=== PATIENT | female | born 1945 | race Caucasian/White ===

== ENCOUNTER 2018-11-21 18:45 | Inpatient (IN) ==
[2018-11-21] MEDS ORDERED: MORPHINE IV ONE ×2 (19:58→20:52)
--- NOTE | 2018-11-21 20:30 | Diag Imaging Result Doc PS360 ---
EXAM: CT HEAD W/O CONTRAST - 11/21/2018 HISTORY: fall TECHNIQUE: CT head without contrast COMPARISON: None. FINDINGS: There are chronic appearing microvascular ischemic changes. There is no indication of recent infarct, although acute infarcts may not be immediately visible. There is no evidence of intracranial hemorrhage, mass effect, or midline shift. There is no evidence of skull fracture. IMPRESSION: No visible acute intracranial abnormality. No hemorrhage or mass effect. This exam was performed using automated exposure control, adjustment of mA or kV according to patient size, and/or use of iterative reconstruction technique. Electronically signed by Nnamdi Dang 11/21/2018 8:28 PM
--- NOTE | 2018-11-21 20:31 | Diag Imaging Result Doc PS360 ---
EXAM: XRAY PELVIS W/HIP 2-3VW LT - 11/21/2018 HISTORY: fall TECHNIQUE: Left hip and pelvis three views COMPARISON: None. FINDINGS: There is fracture through the left femoral neck, with varus deformity. There is no other fracture or dislocation identified. IMPRESSION: Fracture through left femoral neck, with varus deformity. Electronically signed by Nnamdi Dang 11/21/2018 8:29 PM
--- NOTE | 2018-11-21 20:32 | Diag Imaging Result Doc PS360 ---
EXAM: CHEST-1 VIEW - 11/21/2018 HISTORY: hip fracture TECHNIQUE: AP spine chest COMPARISON: None. FINDINGS: Heart size is normal. The lungs appear clear. There is no pleural effusion or pneumothorax identified. IMPRESSION: No evidence of acute disease. Electronically signed by Nnamdi Dang 11/21/2018 8:30 PM
[2018-11-21] MEDS ORDERED: ATIVAN IV ONE (20:42)
[2018-11-21 21:11] LABS: BASO# 0.03 X1000 (0.0-0.2); BASO% 0.2 % (0.0-0.8); EOS# 0.14 X1000 (0.0-0.7); EOS% 0.7 % (0.0-10.0); HEMATOCRIT 38.3 % (37.0-47.0); HEMOGLOBIN 12.3 g/dL (12.0-16.0); IMM GRAN% 1.1 % (0.0-0.5); LYMPH# 1.52 X1000 (1.2-3.4); LYMPH% 8.1 % (20.5-51.1); MCH 29.4 PG (27-31); MCHC 32.1 g/dL (33-37); MCV 91.6 FL (81-99); MONO# 1.17 X1000 (0.11-0.59); MONO% 6.2 % (1.7-9.3); MPV 9.8 FL (7.4-10.4); NEUT# 15.76 X1000 (1.4-6.5); NEUT% 83.7 % (42.2-75.2); PLT 270 X1000 (130-400); RBC 4.18 XMIL (4.2-5.4); RDW 16.1 % (11.5-14.5); WBC 18.82 X1000 (4.8-10.8)
[2018-11-21 21:14] LABS: INR 0.91; PROTIME 12.9 Seconds (11.0-16.0)
[2018-11-21 21:34] LABS: AGAP 12; BUN 19 mg/dL (8-22); CALCIUM 8.7 mg/dL (8.8-10.2); CHLORIDE 104 mmol/L (98-107); COSMO 291; CREATININE 0.8 mg/dL (0.5-0.9); ESTIMATED GFR > 60; GLUCOSE 107 mg/dL (70-104); POTASSIUM 4.3 mmol/L (3.5-5.1); SODIUM 145 mmol/L (136-145); TCO2 29 mmol/L (25-35)
--- NOTE | 2018-11-21 21:54 | PROVIDER DOCUMENTATION ---
This chart was entered by Bharathi Brizuela Scribe, acting as scribe for Jaimee Lawler MD. HPI-Musculoskeletal Pain/Inj - GENERAL Chief Complaint: Fall Stated Complaint: fall/hip pain Time Seen by Provider: 11/21/18 19:56 Source: patient, family - HX OF PRESENT ILLNESS-MUSKULOSKELTAL Nature of Presenting Problem: Pt is a 73 y/o F c/o of left hip pain after a mechanical fall in her car port. Pt says she tripped down 2 steps. The states he found on all fours on the car port concrete floor. Pt denies hitting her head but does not recall and this fall was unwitnessed. She takes plavix and aspirin. She is on Hospice care for advanced COPD. States she was not able to get up from the floor due to her hip pain. no numbness or tingling Quality of Pain: reports: aching Severity in ED: severe Onset/Duration: just prior to arrival Timing: still present Modifying Factors: improves with: nothing Any recent injury?: No Locality of Occurance: Home Similar Symptoms Previously?: No Recently seen or treated by another doctor?: No - FALL INJURY Location of Pain/Injury: reports: other (left hip) Pain Radiation: reports: no radiation Reason for Fall: reports: tripped Symptoms prior to fall:: reports: none Loss of Consciousness: no loss of consciousness Injury Associated Symptoms: denies: diaphoresis, dizziness, shortness of breath , trouble walking Review of Systems - Adult - REVIEW OF SYSTEMS - ADULT Constitutional: denies: chills, fever Eyes: reports: no symptoms reported Ears, Nose, Mouth & Throat: reports: no symptoms reported Cardiovascular: denies: chest pain, edema Respiratory: denies: cough, shortness of breath Gastrointestinal: denies: abdominal pain, nausea, vomiting Genitourinary: reports: no symptoms reported Musculoskeletal: reports: other (left hip pain). denies: back pain, neck pain Integumentary: reports: no symptoms reported Neurological: denies: dizziness/vertigo, headache/migraines Psychiatric: reports: no symptoms reported Endocrine: reports: no symptoms reported Hematologic/Lymphatic: reports: no symptoms reported Allergic/Immunologic: reports: no symptoms reported All Other Systems: Reviewed and Negative Past History - Adult - PAST MEDICAL HISTORY-ADULT Review of Records: reports: Old Records Reviewed, Nursing Assessment Review, Medications Reviewed, Social history reviewed & non-contributory. - SOCIAL HISTORY Smoking: cigarettes Living Situation: family Physical Exam-Injury Related - Physical Exam-Injury Related Initial Vital Signs Reviewed: Yes General Appearance: appears well, alert Eyes: PERRL/EOMI, pink conjunctivae Head, Ears, Nose, Mouth & Throat: normocephalic/atraumatic, moist mucous membranes, normal ENT inspection Neck: non-tender, full range of motion, supple, normal inspection Respiratory: chest non-tender, lungs clear, normal breath sounds, no respiratory distress Cardiovascular: normal peripheral pulses, regular rate, rhythm Abdominal Exam: normal bowel sounds, non tender, soft Back Exam: normal inspection, no CVA tenderness, no vertebral tenderness Extremity: normal capillary refill, pelvis stable, deformity (left hip), tenderness, other (neurovascularly intact). negative: normal range of motion ( unable to straighten left leg) Integumentary: normal color, warm/dry Neurologic: grossly normal, no motor/sensory deficits Psych/Mental Status: normal mood/affect, normal thought content, normal thought process, oriented x 3 Progress - PLAN OF CARE/RESULTS Progress/Plan/Lab Results: Vital Signs - 8 hr 11/21/18 19:01 11/21/18 19:12 Temperature 98 F 98.2 F Pulse Rate 83 83 Respiratory Rate 20 20 Blood Pressure 137/87 115/72 O2 Sat by Pulse Oximetry 95 97 Laboratory Results - last 24 hr 11/21/18 11/21/18 11/21/18 19:39 19:39 19:39 WBC 18.82 H RBC 4.18 L Hgb 12.3 Hct 38.3 MCV 91.6 MCH 29.4 MCHC 32.1 L RDW Std Deviation 16.1 H Plt Count 270 MPV 9.8 Immature Gran % (Auto) 1.1 H Neut % (Auto) 83.7 H Lymph % (Auto) 8.1 L Seward % (Auto) 6.2 Eos % (Auto) 0.7 Baso % (Auto) 0.2 Immature Gran # (Auto) 0.20 H Neut # (Auto) 15.76 H Lymph # (Auto) 1.52 Seward # (Auto) 1.17 H Eos # (Auto) 0.14 Baso # (Auto) 0.03 PT 12.9 INR 0.91 Sodium 145 Potassium 4.3 Chloride 104 Carbon Dioxide 29 Anion Gap 12 BUN 19 Creatinine 0.8 Estimated GFR/1.73 m2 > 60 BUN/Creatinine Ratio 24 Glucose 107 H Calculated Osmolality 291 Calcium 8.7 L Orders Category Date Time Status IV Insertion ORDERED Care 11/21/18 19:58 Completed CHEST-1 VIEW [RAD] Stat Exams 11/21/18 20:[address] HEAD W/O CONTRAST [CT] Stat Exams 11/21/18 19:58 Completed XRAY PELVIS W/HIP 2-3VW LT [RAD] Stat Exams 11/21/18 19:58 Completed BASIC METABOLIC PANEL [CHEM] Stat Lab 11/21/18 19:39 Completed CBC WITH ELECTRONIC DIFF [HEME] Stat Lab 11/21/18 19:39 Completed PROTIME WITH INR [COAG] Stat Lab 11/21/18 19:39 Completed Lorazepam [Ativan] Med 11/21/18 20:42 Discontinued 1 mg IV NOW ONE Morphine Med 11/21/18 19:58 Discontinued 4 mg IV NOW ONE Morphine Med 11/21/18 20:52 Discontinued 4 mg IV NOW ONE EKG [EKG] Stat Ther 11/21/18 20:53 Ordered fall with hip pain and possible impaction of head will further evaluate for underlying injuries. Result Diagrams: 11/21/18 19:39 11/21/18 19:39 - REASSESSMENT Reassessment #1 Status: improving (pain improved, left femoral neck fracture. Discussed case with ortho who would like pt admitted to hospitalist for pre-op clearance. Discussed case with Dr. Silvestre, hospitalist, who will see and admit pt.) - EKG 1 Time of EKG reading by physician:: 21:09 EKG Read and Signed by:: Jaimee Lawler EKG Interpretation (*Must complete 3 of following elements*): Normal Rate: 87 Rhythm: NSR Holloway: normal QRS: normal [place] Interval: normal ST Wave: normal - XRAY 1 XRAY: Left XRAY Study: Hip Impression: Abnormal (EXAM: XRAY PELVIS W/HIP 2-3VW LT - 11/21/2018 HISTORY: fall TECHNIQUE: Left hip and pelvis three views COMPARISON: None. FINDINGS : There is fracture through the left femoral neck, with varus deformity. There is no other fracture or dislocation identified. IMPRESSION: Fracture through left femoral neck, with varus deformity. Electronically signed by Whittl 11/21/2018 8:29 PM 11/[id number]/[id number]), See EMR Report 2 XRAY Study: Chest Impression: Normal (HISTORY: hip fracture TECHNIQUE: AP spine chest COMPARISON: None. FINDINGS: Heart size is normal. The lungs appear clear. There is no pleural effusion or pneumothorax identified. IMPRESSION: No evidence of acute disease. Electronically signed by Whittl 2018 8:30 PM 11/21/[id number]), See EMR Report - CT/MRI 1 CT Study: Head Impression: Normal (EXAM: CT HEAD W/O CONTRAST - 11/21/2018 HISTORY: fall TECHNIQUE: CT head without contrast COMPARISON: None. FINDINGS: There are chronic appearing microvascular ischemic changes. There is no indication of recent infarct, although acute infarcts may not be immediately visible. There is no evidence of intracranial hemorrhage, mass effect, or midline shift. There is no evidence of skull fracture. IMPRESSION: No visible acute intracranial abnormality. No hemorrhage or mass effect. This exam was performed using automated exposure control, adjustment of mA or kV according to patient size, and/or use of iterative reconstruction technique. Electronically signed by Whittl 11/21/2018 8:28 PM), See EMR Report - CONSULTS/PCP/HOSPITALIST Notification #1 *Consult/PCP/Hospitalist*: Dr Silvestre- Hospitalist Time Discussed: 21:28 Reason/Comments: admission Consult Disposition: Admit (accepts) #2 Consult: Dr Borjas Time Discussed: 21:02 Reason/Comments: consult for surgery Consult Disposition: other (will follow) Departure - Departure Date of Disposition Decision: 11/21/18 Time of Disposition Decision: 21:28 DIAGNOSIS: Closed left hip fracture Disposition: ADMITTED INPATIENT 09 Certified Medical Emergency: Emergent Condition: Stable Referrals and Follow-Ups: Kashif Rosenthal MD [Primary Care Provider] - - Critical Care Note This patient required my direct & personal management of CC.: No Attestation - Physician/ CAROLE Attestation Patient care was provided by Advanced Practice Provider:: No The physician spent face to face time with patient:: Yes Advanced Practice Provider documentation review:: Supervising physician onsite and consulted in the evaluation and care of this patient. The physician did have a face to face encounter with the patient. This chart was documented by the indicated scribe, (Bharathi Brizulea Scribe) and accurately reflects the services I performed and decisions made by me, Jaimee Lawler MD, as attested by the provider's signature.
[2018-11-21 23:53] LABS: URINE SOURCE CATH
[2018-11-21 23:56] LABS: BILIRUBIN URINE NEGATIVE (NEGATIVE); BLOOD URINE NEGATIVE (NEGATIVE); COLOR YELLOW; GLUCOSE URINE NEGATIVE (NEGATIVE); KETONE URINE TRACE mg/dL (NEGATIVE); LEUKOCYTES URINE TRACE (NEGATIVE); NITRITE URINE NEGATIVE (NEGATIVE); PH URINE 5.5; PROTEIN URINE 50 mg/dL (NEGATIVE); SP GRAVITY URINE 1.031; TURBIDITY URINE CLEAR (CLEAR); UR EPITHELIAL CELLS <10 /HPF (<10); URINE BACTERIA NEGATIVE /HPF; URINE RBC <10 /HPF (<10); URINE WBC <10 /HPF (<10); UROBILINOGEN URINE 3 mg/dL (NORMAL)
--- NOTE | 2018-11-22 02:10 | HISTORY AND PHYSICAL ---
ADDENDUM HISTORY OF PRESENT ILLNESS: Ms. Earnestine Patel apparently fell in her carport. Her had gone to receive some milk from a neighbor across the stress and when he turned back on his way home a few feet away his was on all 4's and complained to him that she felt she had broken her left hip and was in pain. He did not see what had happened, but he believes that his may have fallen and landed on the left side of her hip. The patient is not a good historian because she has underlying vascular dementia, and also she is currently sedated from benzodiazepines and IV opiates because she was in a lot pain. Her denied any head injury or confusion following this episode. She is a COPD patient on home O2. She is also on hospice. DATA: Her white counts are reviewed which showed a white count of 18,000 which I suspect is reactive. Hemoglobin is 12, hematocrit 38, platelets 270,000 with 83% neutrophils. Urinalysis was not drawn. Glucose was 107, BUN 19, creatinine 0.8. Head CT did not show any acute intracranial bleed. EKG did show sinus tachycardia. Chest film: No evidence of acute disease. Hip and pelvis x-rays showed fracture of the left femoral neck with varus deformity. PHYSICAL EXAMINATION: VITAL SIGNS: Blood pressure 115/72, heart rate 83, respirations 20, temperature is 98.2. She is heavily sedated on 3 L with 97% O2. GENERAL: Noted for a sedated elderly woman resting comfortably, not cyanotic, mildly pale. CHEST: Decreased air entry in both lung del toro with a few expiratory wheezes. EXTREMITIES: Good pulses distally in all extremities. Her left lower extremity showed flexion of her left knee and external rotation of her hip which the patient's spouse said was the most comfortable position for her. ASSESSMENT AND PLAN: Left hip fracture and will probably undergo surgery in 2 days, i.e. Wednesday. The reason for this is because the patient is on high dose aspirin and Plavix. The patient was put on this because of prior recurrent cerebrovascular accidents, which, surprisingly, her does not know anything about. Dr. Reynoso, orthopedist labor relations or personnel negotiator, was notified. Will hold antiplatelet medications for the next 2 nights and hopefully the patient can undergo surgery on Wednesday. This will be done to decrease postoperative bleeding. The patient might also need p.r.n. short-acting bronchodilation, nebulizations and/or long-acting bronchodilators, i.e. Brovana, b.i.d. and arterial blood gases might be useful if the patient is drowsy prior to surgery to be sure she is not a CO2-retainer. cc: Vida Silvetsre MD
[2018-11-22] MEDS ORDERED: TYLENOL PO PRN (03:15)
[2018-11-22] MEDS ORDERED: ZOFRAN IV PRN (03:15)
[2018-11-22] MEDS: DUONEB (A & A) INH SCH ×4 (04:00→23:50)
[2018-11-22 06:41] LABS: BASO# 0.03 X1000 (0.0-0.2); BASO% 0.2 % (0.0-0.8); EOS# 0.21 X1000 (0.0-0.7); EOS% 1.5 % (0.0-10.0); HEMATOCRIT 36.9 % (37.0-47.0); HEMOGLOBIN 11.4 g/dL (12.0-16.0); IMM GRAN% 0.7 % (0.0-0.5); LYMPH# 1.15 X1000 (1.2-3.4); LYMPH% 8.2 % (20.5-51.1); MCH 28.7 PG (27-31); MCHC 30.9 g/dL (33-37); MCV 92.9 FL (81-99); MONO# 1.17 X1000 (0.11-0.59); MONO% 8.4 % (1.7-9.3); MPV 9.8 FL (7.4-10.4); NEUT# 11.28 X1000 (1.4-6.5); PLT 249 X1000 (130-400); RBC 3.97 XMIL (4.2-5.4); RDW 16.2 % (11.5-14.5); WBC 13.94 X1000 (4.8-10.8)
[2018-11-22 06:52] LABS: AGAP 8; ALB/GLOB RATIO 1.5; ALBUMIN 3.8 g/dL (3.5-5.0); ALKALINE PHOSPHATASE 59 U/L (32-104); BUN 20 mg/dL (8-22); CHLORIDE 103 mmol/L (98-107); COSMO 288; CREATININE 0.8 mg/dL (0.5-0.9); ESTIMATED GFR > 60; GLUCOSE 143 mg/dL (70-104); GOT 119 U/L (10-30); GPT 107 U/L (10-36); POTASSIUM 4.4 mmol/L (3.5-5.1); SODIUM 142 mmol/L (136-145); TCO2 31 mmol/L (25-35); TOTAL BILIRUBIN 0.67 mg/dL (0.20-1.00); TOTAL PROTEIN 6.4 g/dL (6.3-8.3)
--- NOTE | 2018-11-22 07:24 | EKG Report ---
Test Performed on : 11/21/2018 9:09:12 PM Test Reason : pre op Blood Pressure : / mmHG Vent. Rate : 087 BPM Atrial Rate : 087 BPM P-R Int : 152 ms QRS Dur : 074 ms QT Int : 372 ms P-R-T Axes : 076 021 056 degrees QTc Int : 447 ms Poor data quality, interpretation may be adversely affected Normal sinus rhythm. Normal ECG No previous ECGs available Unconfirmed Result
--- NOTE | 2018-11-22 07:39 | HISTORY AND PHYSICAL ---
PRIMARY CARE PROVIDER: Dr. Kashif Rosenthal. CHIEF COMPLAINT: Fall with left hip pain. HISTORY OF PRESENT ILLNESS: Mrs. Patel is a 73-year-old, female, with past medical history most notable for hypertension, CVA, vascular dementia and end-stage COPD for which she is on hospice. The patient's states that this afternoon just prior to arrival that he was outside and that his was in the carport. He states that he had just arrived home and from he understands she was outside probably letting the dogs out. She states that she was standing upright. He turned around and when he turned back around she had fallen and was down on all fours. When he did go to help her, she did tell him that she thought her hip was broken though he did not witness the fall. According to the ER note, the patient was alert and oriented x3. Upon arrival she was complaining of left hip pain. She reported that she tripped down two steps. The patient denied hitting her head but could not confirm this for sure. She does take Plavix and aspirin. They did perform a CT of the head, which showed no visible acute intracranial abnormalities. There was no hemorrhage or mass affect. Chest x-ray showed no evidence of acute disease. X-ray of pelvis with a left hip view did show that she had a fracture through the left femoral neck with varus deformity. Her white blood cell count was elevated at 18,820. She did have trace leukocytes noted in her urinalysis that was obtained, but there was no report of dysuria. Unfortunately, at this time due to the patient was in quite a bit of pain and was reported to be very restless they did give her a total of 8 mg of morphine and 1 mg of Ativan in the ER prior to our examination. The patient at this time is sleeping. She was only arousable to painful stimuli. We were unable to obtain a review of systems at this time. Though she does have adequate vital signs, she does have good chest rise and fall. Last vital signs are heart rate 89, respirations 20, blood pressure 126/78, and oxygen saturation is 93% nasal cannula at 3 L. At this time, the patient will be admitted inpatient for further treatment and evaluation of her left femoral neck fracture. Dr. Alicia who is on-call for Orthoped[facility] has been made aware of the patient. Also we would like to add that the patient's spouse states that she is on hospice for end-stage COPD. That she does not require continuous oxygen, though does use it p.r.n. and usually this is at a rate of 3.5 L. He reports that she is able to ambulate, though does have to hold onto things. She alternates assisted devices of a cane, wheelchair and walker at times. He states that she can only ambulate short distances before becoming short of breath and having to rest. He reports that she does have a history of vascular dementia as well as CVA. He reports that it is not uncommon for her to have forgetfulness, especially related to short-term memory. REVIEW OF SYSTEMS: At this time unable to be performed due to the patient's current inpatient condition. PAST MEDICAL HISTORY: 1. History of CVA. The patient did have an MRI that was performed in 2014 which did show that she had extensive chronic microvascular disease and numerous old lacunar infarcts. The patient's states that around this time is approximately the time that she was placed on a medication regimen of aspirin and Plavix by Dr. Rosenthal. 2. Vascular dementia. 3. End-stage COPD on nasal cannula at 3.5 L p.r.n. at home as well as hospice. PAST SURGICAL HISTORY: 1. Cholecystectomy. 2. Hysterectomy. SOCIAL HISTORY: The patient does live with her who was present at bedside. She is a smoker and has smoked since she was in her 20s. He states that she previously did smoke two packs per day, though is down to about 2/3 of a pack at this time. There is no known alcohol or illicit drug use. He does report that she does require assistance with ambulation and does alternate between a cane, walker and wheelchair at times. As previously mentioned, the patient is on hospice for end-stage COPD at this time. FAMILY HISTORY: Positive for her mother having a history of dementia and lung cancer. Her father also had a history of lung cancer. ALLERGIES: Sulfa. HOME MEDICATIONS: 1. Aspirin 325 mg p.o. daily. 2. Clonazepam 0.5 mg to 1.0 mg p.o. q at bedtime. 3. Plavix 75 mg p.o. daily. 4. Sennoside/docusate sodium stool softener 100 mg p.o. b.i.d. 5. The patient's also states that she has been using a lorazepam liquid as well. DIAGNOSTIC DATA/LABORATORY RESULTS: 1. White blood cell count is 18,820, hemoglobin 12.3, hematocrit 38.3, platelet count 270,000. PT 12.9. INR 0.91. 2. Sodium 145, potassium 4.3, chloride 104, serum bicarb is 29, BUN 19, creatinine 0.8, glucose 107, calcium 8.7. 3. Urinalysis was obtained via catheter and was positive for protein, trace ketones and trace leukocytes otherwise negative. 4. Chest x-ray showed no acute abnormalities. 5. CT of the head showed no visible acute intracranial abnormality. No hemorrhage or mass affect. 6. X-ray of the pelvis with left hip view showed fracture through the left femoral neck with varus deformity. PHYSICAL EXAMINATION: VITAL SIGNS: Temperature 97.8 degrees Fahrenheit, heart rate 89, respirations 19, blood pressure 126/78. Oxygen saturation is 92% on nasal cannula at 3L. GENERAL: Mrs. Patel is an elderly, 73-year-old, female. She was resting with her eyes closed on the ER stretcher. She is very drowsy. She was only responsive to painful stimuli at this time. HEENT: Head: Normocephalic and atraumatic. Eyes: Pupils are 2 mm bilaterally , equal and round. ENT: Oral mucosa is slightly dry. NECK: Supple. Trachea is midline. CARDIOVASCULAR: S1, S2. No murmur, gallop, or rub appreciated with a regular rate and rhythm. PULMONARY: The patient has symmetrical chest expansion bilaterally. Lung sounds in bilateral upper del toro did have a very faint expiratory wheeze noted. Lung sounds in bilateral lower del toro were slightly diminished. ABDOMEN: Soft, nondistended. Patient did not have any guarding or facial grimacing upon palpation. Bowel sounds are present, though were hypoactive. EXTREMITIES: No clubbing, cyanosis or edema noted. Radial and pedal pulses were 2+ bilaterally. It was difficult to assess for deformity of the patient's left hip or left lower extremity due to she did have her left leg bent up and her left knee was pointed laterally outward. The patient's states that she had put her leg in that position herself and stated that this is the way it was most comfortable. INTEGUMENTARY: The patient's skin is pink, wads. NEUROLOGIC: As previously mentioned, the patient was reported to be alert and oriented upon arrival to the ER; though due to some pain and some restlessness she was given 8 mg of morphine and 1 mg of Ativan and at this time she is very drowsy and only arousable to painful stimuli. We are unable to complete her neurological exam at this time due to this. Though her pupils are 2 mm bilaterally are equal and round. She was reportedly able to move all extremities upon arrival as well. ASSESSMENT AND PLAN: 1. Left hip fracture. For further treatment and evaluation of this we have placed the patient strict bed rest. She has had a Stevenson catheter placed. She does take Plavix and aspirin and likely will not have surgery in the morning secondary to this. So we did go ahead and allow her to have a Heart Healthy diet. We have placed a consult with Dr. Alicia with Orthopedic Surgery. We will await his evaluation and further recommendations for management. 2. Fall from a standing position with a history of reported frequent falls according to her . The patient is a high fall risk. Her states that even though he does provide assistive devices of cane, walker and wheelchair that the patient is somewhat noncompliant with the use of these assistive devices and secondary to this does have a history of having frequent falls. 3. History of cerebrovascular accident. As previously mentioned, we are holding her aspirin and Plavix at this time given that she is a surgical patient. 4. History of Vascular dementia. 5. End-stage chronic obstructive pulmonary disease on hospice. At this time, we will continue the patient's scheduled DuoNeb treatment. We will also continue her oxygen therapy as needed to maintain adequate oxygen saturations. We will continue to monitor her respiratory status closely given that she has been given sedative medicines and is very drowsy, we have placed her on continuous cardiac telemetry and pulse oximetry. We have placed a consult with Pulmonology given that the patient does have end-stage COPD and will likely need to be evaluated prior to surgery given this. We have placed a consult with Dr. Abbasi and we will await his evaluation and further recommendation for management. 6. Deep venous thrombosis prophylaxis. Provided with SCDs, this will be placed on the patient's right lower extremity only due to her left hip fracture. We will need further determination of anticoagulation use to the discretion of Orthopedic Surgery. 7. Leukocytosis. The patient did have white blood count of 18,820. Though she is not febrile and though she has very trace leukocytes in her urine she has no other known source of infection. This could be reactive related to the patient's fall. We are going to repeat a CBC in the morning. If this continues to be elevated, and once the patient is awake, she is reporting urinary symptoms we will go ahead and treat her urinary tract infection. The patient will be placed on the Surgical floor with telemetry. She will have vital signs and neuro checks q.4 hours. We will do strict intake and output. We have implemented aspiration precautions as well. I will repeat a CBC, CMP and have ordered a type and screen for in the morning. We implemented gentle fluid hydration with normal saline at 85 mL per hour. Further orders and recommendations pending hospital course, diagnostic studies and physician evaluation. Dictated by EVANGELIST Sylvester for Vida Silvestre MD cc: MD Sherwin Martínez MD Olakunle P. Akinsoto, MD [facility] MED[facility] CENTERJefry
--- NOTE | 2018-11-22 07:57 | CONSULTATION ---
DATE OF CONSULTATION: 11/22/2018 HISTORY OF PRESENT ILLNESS: Ms. Patel reports that she fell in her carport yesterday. She reports she was trying to get to her that was across the road at the neighbor's house. She knew that something was wrong when she could not stand up and had severe pain in her left hip. She went to the emergency department, and was seen and evaluated by the emergency physician. X- rays were obtained and showed a left femoral neck fracture with varus deformity. The patient has had some confusion and has a history of vascular dementia. She reports taking some anxiety medicine but does not know the name of it. She also reports that she has taken Plavix and aspirin for preventative measures. She has a history of COPD and is on home oxygen. She is on hospice for end-stage COPD. PAST MEDICAL HISTORY: COPD HTN VASCULAR DEMENTIA ANXIETY. HOSPICE CARE. ALLERGIES: Sulfa. PAST SURGICAL HISTORY. unable to recall at this time. REVIEW OF SYSTEMS: Twelve point review of systems was performed and all the positives were listed in the HPI. LABORATORY DATA: White blood cells 13.94, hemoglobin 11.4, hematocrit 36.9. INR 0.91. Sodium 142, potassium 4.4, chloride 103, BUN 20, creatinine 0.8, glucose 143. AST is 119, ALT 107. Urine shows trace leukocytes. PHYSICAL EXAMINATION: Vital Signs: Temperature 97.8 degrees axillary, pulse rate 90, respiratory rate 16, blood pressure 119/64, oxygen saturation 97% on 3 L nasal cannula. General: The patient is alert but confused. HEENT: Head is normocephalic and atraumatic. Eyes are equal, round, reactive. Neck: Supple. Chest: There is equal chest expansion. Extremities : Her left lower extremity is shortened and externally rotated. There are good pedal pulses. There is negative Homans sign. The left hip is warm. There is moderate anterior joint line tenderness. There is mild redness to the lateral aspect of the left hip. There is good capillary refill in the toes. The left lower extremity is slightly externally rotated. ASSESSMENT AND PLAN: Left femoral neck fracture. We will plan on doing a left bipolar hip replacement in about a day or two when she is cleared by our hospitalist team. The patient has taken aspirin and Plavix, and will need to work out of her system before we get started. The patient agrees that she does not want to have the hip replaced at this time. She would like to go ahead with the hip replacement for pain control and mobilization. All questions were answered. Risks and benefits were gone over with, with the patient. Dictated by EVANGELIST Javier for Sherwin Alicia MD cc: EVANGELIST Javier MD [facility]
[2018-11-22] MEDS: PERICOLACE PO SCH ×2 (09:55→23:00)
[2018-11-22] MEDS: NS 1,000 ML IV SCH ×2 (09:55→22:58)
[2018-11-22 10:15] LABS: ALLEN TEST YES; BE 6.4 mmoll (-3.0-3.0); BLOOD TYPE ARTERIAL; HCO3-(ACT) 29.8 mmoll (20.0-26.0); METHB 1.4 % (0.0-1.5); O2(CT) 14.9 mL/dL (15.0-23.0); PO2(98.6) 60 mmHg (60-100); SAMPLE BLOOD; SAO2 95.5 % (95.0-100.0); THB 11.5 g/dL (11.5-17.4); pH(98.6) 7.39 (7.35-7.45)
[2018-11-22 10:16] LABS: PCO2(98.6) 54 mmHg (35-45)
[2018-11-22 10:17] LABS: MODALITY CANNULA
[2018-11-22] MEDS: MORPHINE IV PRN ×3 (10:39→22:58)
--- NOTE | 2018-11-22 12:20 | CONSULTATION ---
DATE OF CONSULTATION: 11/22/2018 REQUESTING PROVIDER: EVANGELIST Sylvester. REASON FOR CONSULTATION: End-stage COPD on hospice with acute left hip fracture. HISTORY OF PRESENT ILLNESS: This is a 73-year-old female with a medical history of hypertension, CVA, vascular dementia and end-stage COPD. She fell yesterday on the carport concrete floor and x-ray of the pelvis with a left hip showed a fracture through the left femoral neck with varus deformity. The patient currently has been admitted to the medical floor for further treatment and evaluation. At the time of my examination, patient is alert and oriented x3 with confusion at times. She is restless and moaning with complaint of pain on her left hip. The nurse at bedside reports that the patient had been drowsy since she was transferred from the ER. Patient reports she has been on home oxygen at at least 3 L as needed for about 2 years. She reports wheezing, SOB with activity and occasional dry cough. She denies headache, chest pain, palpitation, pedal edema, LLE tingling or numbness. PAST MEDICAL HISTORY: 1. Hypertension. 2. History of CVA. 3. Vascular dementia. 4. End-stage COPD on the hospice and home oxygen with nasal cannula at at least 3 L PRN for 2 years. PAST SURGICAL HISTORY: 1. Cholecystectomy. 2. Hysterectomy. SOCIAL HISTORY: Patient lives with her . She ambulates at home with assistance. She has been smoking since her 20s. She currently smoking about one 1/4 pack/ day. She denies history of alcohol or illicit drug use. Patient ambulates at home with assistance. FAMILY HISTORY: Positive for dementia and lung cancer. ALLERGIES: Sulfa. REVIEW OF SYSTEMS: A 10 point review of systems was performed and the pertinent is listed within the HPI, otherwise noncontributory. PHYSICAL EXAMINATION: Vital Signs: Temperature 99.3, blood pressure 120/60, pulse 90, respiratory rate 14, oxygen saturation 94% on nasal cannula at 3. General: This is an elderly female. She is restless and moaning with pain in her left hip. She has mild expiratory wheezing, but in no apparently acute respiratory distress. HEENT: Atraumatic. Trachea midline. Mucosa pink and slightly dry. Respiratory: Chest expansion symmetrically bilaterally. Expiration prolonged; AP diameter increased; Diminished breathing sounds bibasilarly with expiratory wheezing in the upper and mid lung zones. Gastrointestinal: Soft, nontender, nondistended with normoactive bowel sounds in all 4 quadrants. Extremities: No clubbing, no cyanosis. No pedal edema noted. Neurologic: Patient is awake, alert and oriented x3 with confusion noted at times. LABORATORY DATA: WBC 13.94, HgB 11.4, HCT 36.9, PLT 249; Na+ 142, K+ 4.4, Cl- 103, CO2 31, BUN 20, Creatinine 0.8, glucose 143. ABG: pH 7.39, pCO2 54, pO2 60, HCO3 29.8, base excess 6.4 and oxyhemoglobin 92.0. ASSESSMENT and PLAN: This is a 73-year-old female with a medical history of hypertension, cerebrovascular accident, vascular dementia, and end-stage chronic obstructive pulmonary disease, on home oxygen at at least 3 L with hospice. She has been admitted to the medical floor with left hip fracture. 1. Left hip fracture. Dr. Alicia is consulted for orthopedic surgery. 2. End-stage chronic obstructive pulmonary disease on hospice and home oxygen at at least 3 liters. An ABG performed this morning revealed patient has hypercapnic respiratory failure which is consistent with patient's end-stage COPD. Currently, we continue supplemental oxygen and bronchodilators; may consider BiPAP if indicated; and CTPA will be ordered to rule out pulmonary embolism. 3. Chronic hypocapnic respiratory failure likely secondary to end-stage chronic obstructive pulmonary disease. 4. Leukocytosis. Patient has white blood cell 18.20 in the ER. She has a saldana cathether and the urine in the bedside drainage bag is pink and cloudy. Urinalysis shows trace leukocytes. Patient likely has UTI. 5. Continue GI and DVT prophylaxis. Thank you for the courtesy of this consult. Dictated by EVANGELIST Campuzano for Grupo Abbasi MD cc: EVANGELIST Campuzano MD [facility]
--- NOTE | 2018-11-22 13:48 | PROGRESS NOTE ---
DATE: 11/22/2018 INTERVAL HISTORY: Pain relatively well controlled. No dyspnea or chest pain, increased cough, nausea, vomiting, diarrhea. Off of antiplatelet drugs for likely hip surgery in the next 1-2 days. No new complaints. No acute events overnight. REVIEW OF SYSTEMS: A 12 point review of systems negative except as per interval history. LABS: WBC 13.9, hemoglobin 11.4, hematocrit 36.9, platelets 249,000. ABG with pH 7.39, pCO2 54, PO2 60, O2 saturation 95% on 3 L by nasal. Glucose 143. AST 119, ALT 107. Complete metabolic panel otherwise unremarkable. Head CT with no acute process. Chest x-ray no acute process. VITAL SIGNS: T-max 99.3, pulse 86, respirations 16, blood pressure 115/57, O2 saturation 98% on 3 L by nasal cannula. PHYSICAL EXAMINATION: General: No acute distress. Vital signs: As above. HEENT: Normocephalic, atraumatic. Moist mucous membranes. No cervical adenopathy. Cardiovascular: Regular rate and rhythm. No murmurs, rubs, or gallops. Pulmonary: Mildly decreased air entry throughout but no wheezing, rales, or rhonchi noted. Abdomen: Soft, nontender, nondistended. Bowel sounds positive. Extremities: Peripheral pulses intact. No clubbing, cyanosis, or edema. Neurologic: Cranial nerves grossly intact. Globally weak and limited movement of broken leg but no focal deficits identified. Psychiatric: Normal mood and affect. Awake, alert, and oriented to person and place, but struggled slightly with time. Skin: No new rashes or lesions identified. ASSESSMENT AND PLAN: 1. Left hip fracture. Holding patient's Plavix and aspirin, which she is on for a history of stroke. The patient has had some increased risk with surgery related to chronic hypercapnic and hypoxic respiratory failure, but this appears to be at baseline and no optimization to be done from a medical standpoint. Once patient is far enough out from her antiplatelet drugs, she should okay to go to surgery from a medical standpoint. 2. Vascular dementia. Cooperative, conversant, and largely normal at this time. We will monitor mental status. 3. Chronic obstructive pulmonary disease with chronic hypoxic and hypercapnic respiratory failure. ABG showing elevated CO2, which appears to be baseline. Saturating well on 2-3 L of oxygen, which is what she is on at home. Appears to be essentially at baseline at this time. Will monitor closely for worsening. 4. Leukocytosis. No sign of acute infection at this time. Likely reactive to fall and fracture. Improving rapidly. 5. History of cerebrovascular accident. No acute process on CT. Holding aspirin and Plavix as above. Will likely restart aspirin after surgery. 6. Deep vein thrombosis prophylaxis. SCDs. 7. Elevated liver function tests. Minimally elevated AST and ALT with normal bilirubin and alkaline phosphatase. Likely mild fatty liver, but will check liver ultrasound and monitor.
--- NOTE | 2018-11-22 13:52 | Diag Imaging Result Doc PS360 ---
EXAM: US GB < RUQ (LIMITED) 11/22/2018 HISTORY: elevated LFTs/transaminitis. suspect fatty liver TECHNIQUE: Right upper quadrant ultrasound COMMENT: The liver is hyperechoic. The visualized portions of the aorta and inferior vena cava are within normal limits. There is antegrade flow in the portal vein. Common bile duct is slightly distended at over 7 mm, however the patient is status post cholecystectomy and this is probably physiologic. There is a 3.5 cm cyst in the upper pole of the right kidney. There is no evidence of hydronephrosis or solid masses. The pancreas is not well seen. IMPRESSION: Hepatic steatosis. Electronically signed by Tomas Waterman 11/22/2018 1:51 PM
[2018-11-22] MEDS: ATIVAN IV PRN (16:24)
--- NOTE | 2018-11-22 17:12 | Diag Imaging Result Doc PS360 ---
EXAM: CT ANGIOGRM PULMONARY ARTERIES HISTORY: Rule out PE TECHNIQUE: CT chest with intravenous contrast. Pulmonary artery protocol with MIP images. COMPARISON: None. FINDINGS: No pleural effusions. No cardiomegaly. No thoracic aortic aneurysm or dissection. Somewhat poor opacification of the upper lobe arteries due to timing. No filling defects identified. No enlarged lymph nodes. There are tiny nodular densities/infiltrates in both lungs. These are most pronounced in the apices. No consolidation. No bronchiectasis. IMPRESSION: 1.No pulmonary emboli 2.Tiny nodular densities/infiltrates bilaterally, but no consolidation. This exam was performed using automated exposure control, adjustment of mA or kV according to patient size, and/or use of iterative reconstruction technique. Electronically signed by Demian Cummins 11/22/2018 5:11 PM
[2018-11-23] MEDS: ATIVAN IV PRN ×3 (03:00→17:38)
[2018-11-23] MEDS: DUONEB (A & A) INH SCH ×4 (03:40→21:35)
[2018-11-23 05:44] LABS: BASO# 0.04 X1000 (0.0-0.2); BASO% 0.3 % (0.0-0.8); EOS# 0.27 X1000 (0.0-0.7); EOS% 2.1 % (0.0-10.0); HEMATOCRIT 33.9 % (37.0-47.0); HEMOGLOBIN 10.5 g/dL (12.0-16.0); IMM GRAN# 0.06 X1000 (0.0-0.04); IMM GRAN% 0.5 % (0.0-0.5); LYMPH# 1.48 X1000 (1.2-3.4); LYMPH% 11.4 % (20.5-51.1); MCH 29.1 PG (27-31); MCV 93.9 FL (81-99); MONO# 1.29 X1000 (0.11-0.59); MPV 9.5 FL (7.4-10.4); NEUT% 75.7 % (42.2-75.2); PLT 199 X1000 (130-400); RBC 3.61 XMIL (4.2-5.4); RDW 16.2 % (11.5-14.5); WBC 12.94 X1000 (4.8-10.8)
[2018-11-23 06:47] LABS: AGAP 10; ALB/GLOB RATIO 1.3; ALBUMIN 3.6 g/dL (3.5-5.0); ALKALINE PHOSPHATASE 55 U/L (32-104); BUN 16 mg/dL (8-22); CALCIUM 7.7 mg/dL (8.8-10.2); CHLORIDE 104 mmol/L (98-107); COSMO 287; CREATININE 0.6 mg/dL (0.5-0.9); ESTIMATED GFR > 60; GLUCOSE 113 mg/dL (70-104); GOT 46 U/L (10-30); GPT 60 U/L (10-36); POTASSIUM 4.2 mmol/L (3.5-5.1); SODIUM 143 mmol/L (136-145); TCO2 29 mmol/L (25-35); TOTAL BILIRUBIN 0.93 mg/dL (0.20-1.00); TOTAL PROTEIN 6.4 g/dL (6.3-8.3)
--- NOTE | 2018-11-23 07:13 | PROGRESS NOTE ---
DATE: 11/23/2018 SUBJECTIVE: The patient is a 73-year-old female, who is status post fall 2 days ago, sustaining a left displaced femoral neck fracture. She was admitted to the hospital. Orthopedic consultation was requested. Hemiarthroplasty of the left hip was offered after obtaining preop medical clearance, and allowing a couple of days of holding her Plavix and aspirin. The patient does have an underlying history of hypertension, CVA, vascular dementia, end-stage COPD for which she is on home O2 and she is on hospice. OBJECTIVE: The patient is cooperative with the exam. The patient's left lower extremity has some shortening. She has tenderness to palpation along the hip, tenderness to gentle movement. The calf is soft. She is able to flex and extend her toes. IMPRESSION: Left displaced femoral neck fracture. PLAN: At this point, I recommend proceeding with hemiarthroplasty of the left hip. Risks and benefits of the surgery were explained, including the risks of anesthesia, , bleeding, infection, failure to relieve pain, postop stiffness, nerve injury, blood clots, and other imponderables. I did speak with the patient's via phone and all questions were answered and the patient and family agreed with the treatment plan. cc: Thaddeus Vivas MD
[2018-11-23] MEDS ORDERED: NEOSPORIN G.U. IRRIGANT ONE (08:26)
[2018-11-23] MEDS ORDERED: XYLOCAINE-MPF 2% ONE (08:31)
[2018-11-23] MEDS ORDERED: DIPRIVAN 1% ONE (08:31)
[2018-11-23] MEDS: PERICOLACE PO SCH (08:34)
[2018-11-23 08:49] LABS: PREALBUMIN 14.9 mg/dL (20-40)
[2018-11-23] MEDS ORDERED: KEFZOL 1 GM/D5W 1 GM/50 ML IVPB ONE (08:53)
[2018-11-23] MEDS ORDERED: DECADRON ONE (09:37)
[2018-11-23] MEDS ORDERED: ZOFRAN ONE (09:37)
[2018-11-23] MEDS ORDERED: NEOSTIGMINE ONE (10:29)
[2018-11-23] MEDS ORDERED: ROBINUL ONE (10:29)
[2018-11-23] MEDS ORDERED: NEO-SYNEPHRINE ONE (10:32)
--- NOTE | 2018-11-23 10:59 | OPERATIVE NOTE ---
PROCEDURE DATE: 11/23/2018 PREOPERATIVE DIAGNOSIS: Left displaced femoral neck fracture. POSTOPERATIVE DIAGNOSIS: Left displaced femoral neck fracture. PROCEDURE PERFORMED: Left bipolar hemiarthroplasty with [employer] Actis DuoFix size 6 press-fit stem, a 28 by +1.5 head, and a 28 x 45 bipolar head. SURGEON: Thaddeus Vivas MD PERCUSSION TUNER: Jonh Pacheco [facility] EDUCATOR: Sturat Lin RN ANESTHESIA: General. INTRAVENOUS FLUIDS: Lactated Ringer's 1200 mL. ESTIMATED BLOOD LOSS: 250 mL. COMPLICATIONS: None. INDICATIONS FOR PROCEDURE: The patient is a 73-year-old female who is 2 days status post a fall sustaining a left displaced femoral neck fracture. She was admitted to the hospital, underwent preoperative medical workup. After obtaining preoperative medical clearance, the recommendation to proceed with left bipolar hemiarthroplasty was offered. The risks and benefits of surgery were explained including the risks of anesthesia, , bleeding, infection, failure to relieve pain, postoperative stiffness, nerve injury, blood clots, and other imponderables. All questions were answered. The patient and family wished to proceed with surgery. DETAILS OF OPERATION: The patient was taken to the operating room and underwent general anesthesia. After adequate anesthesia was obtained, she was placed in the right lateral decubitus position on a conner bag with an axillary roll. The left lower extremity was subsequently prepped and draped in the usual sterile fashion. Standard lateral incision was made along the hip, and a posterior approach was performed. The incision was carried down through subcutaneous tissue. The gluteus keila was incised in line with the incision. A Charnley retractor was placed. The piriformis tendon was then identified and stay sutures were placed. The piriformis tendon along with short external rotators was then released. A T-shaped capsulotomy was then performed. Two stay sutures were placed at the edge of the capsule. A sagittal saw was used to resect approximately 1 fingerbreadth proximal to the lesser trochanter on the femoral neck. The humeral head was then removed with a corkscrew. Attention was then turned to the femur. A box cutting guide was then placed, followed by a starting reamer. Sequential broaching was performed up to a size 6 and it had a good fit. The trial head and neck size was performed with a 28 +1.5 femoral head with a 28 x 45 bipolar head, had good stability and good range of motion. The trial components were then removed. After this had been performed, the trial components removed, copious irrigation was performed with antibiotic pulsatile lavage. A size 6 press-fit stem with [employer] press-fit stem was then impacted and had good fit. A 28 +1.5 femoral head with a 28 x 45 bipolar head was then placed. The hip was then reduced, carried through range of motion. It had good range of motion and good stability. The wound was copiously irrigated once again. Number 1 Vicryl was used to repair the arthrotomy, followed by number 1 Vicryl to repair the piriformis tendon. Irrigation was then performed once again. The Charnley retractor was then removed. Number 1 Vicryl was used to repair the gluteus keila in a running fashion. The wound was copiously irrigated once again. A 2-0 Vicryl was used to repair the subcutaneous tissue, followed by skin partha. Adaptic, 4 x 4's, ABD pad, and tape to the left hip. The patient tolerated the procedure with no complications. She was transferred to the recovery room in stable condition. cc: Thaddeus Vivas MD
--- NOTE | 2018-11-23 11:09 | Diag Imaging Result Doc PS360 ---
EXAM: HIP 1 VIEW LEFT 11/23/2018 HISTORY: LEFT HIP REPLACEMENT TECHNIQUE: Left hip portable AP at 1053 COMMENT: There is a bipolar hip prosthesis. There is no evidence of acute fracture or dislocation. IMPRESSION: Postsurgical changes. Electronically signed by Tomas Waterman 11/23/2018 11:07 AM
[2018-11-23] MEDS ORDERED: NS 1,000 ML ONE (11:29)
[2018-11-23] MEDS ORDERED: MORPHINE IV PRN (12:20)
[2018-11-23] MEDS ORDERED: MILK OF MAGNESIA PO PRN (12:20)
[2018-11-23] MEDS ORDERED: ZOFRAN IV PRN (12:20)
[2018-11-23] MEDS: TYLENOL PO SCH ×2 (13:20→21:27)
[2018-11-23] MEDS: NS 1,000 ML IV SCH (13:21)
--- NOTE | 2018-11-23 15:04 | PROGRESS NOTE ---
DATE: 11/23/2018 INTERVAL HISTORY: The patient is status post surgical repair of a left femoral neck fracture this morning. Pain is very well controlled in the postop period. No current complaints. No acute events overnight. O2 requirements remain stable. REVIEW OF SYSTEMS: A 12 point review of systems is negative except as per the interval history. LABS: WBC 12.9, hemoglobin 10.5, hematocrit 33.9, and platelets 199. Glucose 113, prealbumin 14.9, AST 46, and ALT 60. Complete metabolic panel is otherwise unremarkable. IMAGING: Postop hip x-ray with bipolar hip prosthesis in good location. VITAL SIGNS: T-max 100.2, pulse 86, blood pressure 100/44, respiratory rate 18 , and O2 saturation 94% on 3 L via nasal cannula. PHYSICAL EXAMINATION: General: No acute distress. Vitals: As above. HEENT: Normocephalic, atraumatic. Moist mucous membranes. Neck: No cervical adenopathy. Cardiovascular: Regular rate and rhythm. No murmurs, rubs, or gallops. Pulmonary: Mildly decrease air entry throughout. Otherwise, clear to auscultation. Abdomen: Soft, nontender, and nondistended. Bowel sounds positive. Extremities: Peripheral pulses intact. Left hip is bandaged. The bandage is clean, dry, and intact. Neurologic: Cranial nerves are grossly intact. Globally weak with limited movement of the left leg secondary to surgery but no focal deficits identified. Psychiatric: Slightly flat affect. Normal mood. Asleep but easily arousable. Oriented to person and place but not time currently. Skin: No new rashes or lesions identified. ASSESSMENT AND PLAN: 1. Left hip fracture. Holding the patient's Plavix and aspirin. Status post surgical repair earlier today. Pain is well controlled. We will start on Lovenox in the morning. Can likely be discharged on Xarelto when she goes to rehab. Social Work involved and working on rehab placement. 2. Vascular dementia. Cooperative, conversant, and largely normal. She does display a slightly flat affect and occasional mild confusion. Monitor mental status. The patient's states that she has been on aspirin and Plavix ever since her previous diagnosis of a stroke. We will likely only restart one of these on discharge. After discussion with patient and , no indication for continued dual anti-platelet therapy is identified. 3. Chronic obstructive pulmonary disease with chronic hypoxic and hypercapnic respiratory failure. Arterial blood gas showing an elevated CO2 which appears to be baseline. She is saturating well on 2 to 3 L of oxygen which is what she is on at home. Appears to be essentially baseline. Continue monitoring respiratory status. 4. Leukocytosis, likely reactive secondary to fracture. Continue monitoring. 5. History of cerebrovascular accident. No acute process on CT. Holding aspirin and Plavix as above. We will likely restart aspirin prior to discharge. 6. Elevated liver function tests, minimally elevated AST and ALT with normal bilirubin and alkaline phosphatase. Trending down somewhat today. Abdominal ultrasound showing only a fatty liver. No need for further workup at this time. 7. Deep vein thrombosis prophylaxis with sequential compression devices. [facility]
[2018-11-23] MEDS: KEFZOL 1 GM/D5W 1 GM/50 ML IVPB IV SCH (16:39)
[2018-11-23] MEDS: OXY IR PO PRN ×2 (18:42→21:26)
[2018-11-23] MEDS: COLACE PO SCH (21:26)
[2018-11-24] MEDS: KEFZOL 1 GM/D5W 1 GM/50 ML IVPB IV SCH (00:07)
[2018-11-24] MEDS: DUONEB (A & A) INH SCH ×4 (03:20→21:15)
[2018-11-24] MEDS: TYLENOL PO SCH ×3 (04:39→20:43)
[2018-11-24] MEDS: HALDOL IV PRN ×2 (05:31→11:45)
[2018-11-24 07:15] LABS: AGAP 10; BUN 21 mg/dL (8-22); CALCIUM 7.5 mg/dL (8.8-10.2); CHLORIDE 107 mmol/L (98-107); COSMO 295; CREATININE 0.8 mg/dL (0.5-0.9); ESTIMATED GFR > 60; GLUCOSE 126 mg/dL (70-104); POTASSIUM 3.9 mmol/L (3.5-5.1); SODIUM 146 mmol/L (136-145); TCO2 29 mmol/L (25-35)
--- NOTE | 2018-11-24 07:52 | PROGRESS NOTE ---
DATE: 11/24/2018 SUBJECTIVE: The patient is a 73-year-old female who is 1 day status post hemiarthroplasty, left hip. Patient is currently resting. She is confused this morning. OBJECTIVE: On physical exam, patient's dressing is intact. Abduction pillow was then placed. She is able to actively dorsiflex and plantar flex her foot. Hemoglobin and hematocrit are pending. IMPRESSION: Postoperative day #1 status post left hemiarthroplasty, left hip. PLAN: At this point, we will begin mobilization with physical therapy. Weight bearing as tolerated. We will consult Manager Spanish for discharge planning for evaluation for inpatient rehabilitation. cc: Thaddeus Vivas MD
[2018-11-24 08:01] LABS: HEMATOCRIT 24.9 % (37.0-47.0); HEMOGLOBIN 7.6 g/dL (12.0-16.0)
[2018-11-24] MEDS: ATIVAN IV PRN (08:52)
[2018-11-24] MEDS: FERROUS SULFATE PO SCH (08:55)
[2018-11-24] MEDS: PERIDEX MT SCH ×2 (08:55→20:43)
[2018-11-24] MEDS ORDERED: LOVENOX SUBQ SCH (09:00)
[2018-11-24 10:33] LABS: ALLEN TEST YES; BE 6.6 mmoll (-3.0-3.0); BLOOD TYPE ARTERIAL; HCO3-(ACT) 30.1 mmoll (20.0-26.0); METHB 1.6 % (0.0-1.5); O2(CT) 10.3 mL/dL (15.0-23.0); O2HB 95.7 % (95.0-99.0); PCO2(98.6) 49 mmHg (35-45); PO2(98.6) 102 mmHg (60-100); SAMPLE BLOOD; SAO2 100.3 % (95.0-100.0); THB 7.5 g/dL (11.5-17.4); pH(98.6) 7.42 (7.35-7.45)
[2018-11-24 10:34] LABS: MODALITY CANNULA
[2018-11-24] MEDS: NS 1,000 ML IV SCH ×2 (13:06→13:07)
[2018-11-24] MEDS: OXY IR PO PRN (14:06)
[2018-11-24] MEDS: COLACE PO SCH (20:44)
[2018-11-25] MEDS: NS 1,000 ML IV SCH ×3 (01:14→15:59)
[2018-11-25] MEDS: DUONEB (A & A) INH SCH ×2 (03:35→10:02)
[2018-11-25] MEDS: TYLENOL PO SCH ×3 (04:14→20:41)
--- NOTE | 2018-11-25 05:41 | PROGRESS NOTE ---
DATE: 11/24/2018 SUBJECTIVE: Patient has no focal complaints. OBJECTIVE: Vital signs: Blood pressure 88/34, heart rate 90, respiratory 18, temperature 98 degrees, 97% on 4 L. Cardiovascular: Regular rate and rhythm. Pulmonary: Bilateral breath sounds. Clear to auscultation. GI: Soft, nontender, and nondistended. Bowel sounds are positive. Examining her postop. LABORATORY DATA: Hemoglobin and hematocrit has dropped precipitously down to 7 and 24. PROBLEM LIST: 1. Left hip fracture. She is off her Plavix and aspirin. She is status post open reduction and internal fixation earlier today, I think per Dr. Vivas. We will continue pain control and physical therapy. 2. Vascular dementia. She appears to be stable. 3. Chronic obstructive pulmonary disease. She has a little bit increasing O2 requirement. I am going to repeat her chest x-rays, and we will continue breathing treatments, pulmonary toilet the best we can. 4. Anemia status post hemorrhage. I am going to continue follow closely, but she has some bleeding postop. I anticipate she may require transfusion. She is on iron supplements, and we will continue to follow closely. 5. Disposition. She will most likely need rehab. We will continue to monitor that her needs and follow closely. cc: Gilson Myers MD
[2018-11-25] MEDS: LOVENOX SUBQ SCH (06:31)
[2018-11-25 06:56] LABS: BASO# 0.04 X1000 (0.0-0.2); BASO% 0.3 % (0.0-0.8); EOS# 0.37 X1000 (0.0-0.7); EOS% 2.8 % (0.0-10.0); HEMATOCRIT 24.1 % (37.0-47.0); HEMOGLOBIN 7.4 g/dL (12.0-16.0); IMM GRAN% 0.8 % (0.0-0.5); LYMPH# 1.18 X1000 (1.2-3.4); LYMPH% 8.9 % (20.5-51.1); MCHC 30.7 g/dL (33-37); MCV 94.5 FL (81-99); MONO# 1.63 X1000 (0.11-0.59); MONO% 12.4 % (1.7-9.3); MPV 9.6 FL (7.4-10.4); NEUT# 9.87 X1000 (1.4-6.5); NEUT% 74.8 % (42.2-75.2); PLT 172 X1000 (130-400); RBC 2.55 XMIL (4.2-5.4); RDW 15.9 % (11.5-14.5); WBC 13.19 X1000 (4.8-10.8)
--- NOTE | 2018-11-25 07:03 | PROGRESS NOTE ---
DATE: 11/25/2018 SUBJECTIVE: The patient is a pleasant 73-year-old female who is 2 days status post hemiarthroplasty of the left hip. She is currently sleeping. OBJECTIVE: On physical exam, patient's left lower extremity dressing is intact. The wound looks good. There is a small amount of bloody drainage. She does have a large area of ecchymosis along the lateral thigh involving the left hip. Her calf is soft. Her abduction pillow was in place. She has heel protector boots. Hemoglobin and hematocrit are pending. IMPRESSION: Postoperative day #2 status post hemiarthroplasty left hip. PLAN: Patient is stable from an orthopedic standpoint. She is being evaluated for rehab placement. I plan on discontinuing her partha 2 weeks postop. Inspection will follow up in the office after discharge from rehab. cc: Thaddeus Vivas MD
[2018-11-25 07:19] LABS: AGAP 10; BUN 19 mg/dL (8-22); CALCIUM 7.8 mg/dL (8.8-10.2); CHLORIDE 108 mmol/L (98-107); COSMO 287; CREATININE 0.6 mg/dL (0.5-0.9); ESTIMATED GFR > 60; GLUCOSE 96 mg/dL (70-104); POTASSIUM 3.8 mmol/L (3.5-5.1); SODIUM 143 mmol/L (136-145); TCO2 25 mmol/L (25-35)
--- NOTE | 2018-11-25 07:39 | Diag Imaging Result Doc PS360 ---
CHEST-1 VIEW - 11/25/2018 INDICATION: SOB COMPARISON: 11/21/2018 FINDINGS: Lung volumes are lower. No focal infiltrates, pneumothorax, or pleural effusion. Heart size remains normal. IMPRESSION: Low lung volumes. No acute disease. Electronically signed by Luke Jeong 11/25/2018 7:36 AM
[2018-11-25] MEDS: FERROUS SULFATE PO SCH (09:52)
[2018-11-25] MEDS: PERIDEX MT SCH ×2 (09:52→20:45)
[2018-11-25] MEDS ORDERED: CARDIZEM IV ONE (10:52)
[2018-11-25] MEDS ORDERED: CARDIZEM 125 MG in NS 100 ML IV SCH (11:00)
[2018-11-25] MEDS ORDERED: LASIX IV SCH (11:45)
[2018-11-25] MEDS ORDERED: NS NEB INH SCH (11:45)
[2018-11-25] MEDS: LANOXIN IV SCH ×3 (11:58→17:36)
--- NOTE | 2018-11-25 12:06 | PROGRESS NOTE ---
DATE: 11/25/2018 SUBJECTIVE: The patient has developed atrial fibrillation with rapid ventricular response. She is a very pleasant lady. Today, she is really asymptomatic, but her heart rate has jumped up into the 150s, sometimes in the 170s, looks like atrial fibrillation with rapid ventricular response. She denies any chest pain. She has some shortness of breath, but she has been having shortness of breath. She has COPD and is on chronic home oxygen. OBJECTIVE: Vital Signs: Heart rate is 140, blood pressure 108/50, 90s/60s, respiratory rate of 18, temperature 99.4 degrees. Cardiovascular: Irregularly irregular. Pulmonary: Bilateral breath sounds. Clear to auscultation. GI: Soft, nontender, nondistended. Bowel sounds were positive. LABORATORY DATA: White count is 13, hemoglobin and hematocrit is down to 7 and 24, which is close to where it was before. Potassium 3.8. PROBLEM LIST: 1. Atrial fibrillation with rapid ventricular response, which looks like a new diagnosis. Her is at bedside and he states that she has never had that. I think they have been 40 years. She has never had that before. So, we will initiate Cardizem. I think beta blockers are risky because she has got chronic obstructive pulmonary disease. We will get an echocardiogram when heart rate is improved. Cardiac enzymes, thyroid stimulating hormone, Cardiology consultation and follow. I am going to give her some digoxin as well because her blood pressure is marginal. 2. Chronic obstructive pulmonary disease exacerbation. Continue oxygen. We will work on pulmonary toilet. We will have to be very careful with breathing treatments right now. 3. Vascular dementia appears to be stable. 4. Anemia. Her hemoglobin and hematocrit has dropped some, actually a lot since admission. She was 12 and 38 preop; she is down to 7 and 24, which I would regularly consider transfusion, but because of her hypotension, atrial fibrillation, I think I am going to go ahead and give her a unit of blood. DISPOSITION: Pending her clinical status, I am going to transfer her to CI or ICU once we can get a bed available. TIME SPENT: 35 minute critical care time for atrial fibrillation with rapid ventricular response and intravenous antiarrhythmics. cc: Gilson Myers MD
--- NOTE | 2018-11-25 12:48 | EKG Report ---
Test Performed on : 11/25/2018 12:39:54 PM Test Reason : afib Blood Pressure : / mmHG Vent. Rate : 148 BPM Atrial Rate : 166 BPM P-R Int : 000 ms QRS Dur : 072 ms QT Int : 296 ms P-R-T Axes : 000 016 247 degrees QTc Int : 464 ms Atrial fibrillation. with rapid ventricular response. with premature ventricular or aberrantly conduc mariann complexes. ST & T wave abnormality, consider inferolateral ischemia Abnormal ECG When compared with ECG of 21-NOV-2018 21:09, (Unconfirmed) Atrial fibrillation. has replaced Sinus rhythm. Vent. rate has increased BY 61 BPM T wave inversion now evident in Inferior leads T wave inversion now evident in Anterolateral leads Confirmed by Jessica LAMBERT, Miguel Gallego ([id number]) on 11/26/2018 10:52:27 AM
[2018-11-25 12:55] LABS: CK INDEX 0.9 (0.0-2.5); CK-MB 4.95 ng/mL (0.0-5.0)
[2018-11-25] MEDS ORDERED: CARDIZEM PO ONE (15:11)
[2018-11-25] MEDS: XOPENEX NEB INH SCH ×2 (16:22→19:32)
[2018-11-25] MEDS ORDERED: HALDOL IV ONE (16:44)
--- NOTE | 2018-11-25 17:28 | ECHO REPORT ---
ORDER DATE: 11/25/2018 ECHOCARDIOGRAPHIC MEASUREMENTS: 1. Interventricular septum 0.9, left ventricular posterior wall 0.9, diastolic diameter 4.2, left atrium 3.4, aorta 3.0. 2. Aortic valve leaflets are mildly sclerosed, trileaflet, opening normally. Pulmonic valve was normal. Mitral valve was normal. Technically suboptimal study. Poor acoustic window. There is trace mitral regurgitation. Trace tricuspid regurgitation. Peak velocity across the aortic valve less than 2 m/sec. There is no aortic stenosis or regurgitation. Definity was used to assess left ventricular systolic function. Normal left ventricular cavity size. Estimated ejection fraction of 65%. 3. There is no pericardial effusion or obvious intracardiac mass or thrombus seen. 4. Anterior echo-free space suggestive of pericardial fat pad was noted. 5. Tachycardia was noted. This may overestimate the systolic function. cc: MD Gilson Miranda MD
[2018-11-25] MEDS: COLACE PO SCH (20:41)
[2018-11-25] MEDS: CARDIZEM PO SCH (20:41)
[2018-11-26] MEDS: XOPENEX NEB INH SCH ×5 (00:42→21:20)
--- NOTE | 2018-11-26 01:17 | CARDIOLOGY CONSULTATION ---
DATE: 11/25/2018 INDICATION FOR THE CONSULTATION: New onset atrial fibrillation. HISTORY OF PRESENT ILLNESS: Ms Patel is a 73-year-old female with a history of vascular dementia who presented on the with a fall and subsequent left hip pain. In the interim, since admission she had a operative repair. It appears that was done on the . The patient today had issues with rapid heart rate. EKG was checked and showed a new onset of rapid atrial fibrillation. She was transferred up to the [facility] and subsequently was noted to convert over into what appears to be sinus rhythm presently. The patient is not able to give much history. She does have some hip pain. is present in the room and says she has been confused for quite some time. She is pleasant but she is somewhat fidgety. She has no pain complaints in her chest. She denies any palpitations presently. PAST MEDICAL HISTORY: Significant for 1. Vascular dementia. 2. COPD. SOCIAL HISTORY: The patient is a smoker. She is . is present in the room. FAMILY HISTORY: Significant for hypertension. REVIEW OF SYSTEMS: A 10 system review of systems is negative and somewhat difficult due to the patient's dementia. PHYSICAL EXAMINATION: She is afebrile. Temperature today was 99.4, her heart rate during my examination was in the 80s to 90s sinus on the monitor. Earlier today she had heart rates in the 140s to 150s. Her blood pressure most recently was 112/61.General: She is very pleasant. Somewhat confused. HEENT: Oropharynx is moist. She has poor dentition. Eye examination shows pink conjunctivae, white sclerae. Neck: Shows no obvious thyromegaly or thyroid tenderness. Cardiovascular: She sounds to be in a regular rate and rhythm. She has no obvious murmurs. She has no lower extremity edema. She has warm and well perfused lower extremities. Chest: Sounded relatively clear from the anterior and axillary positions. She had a poor inspiratory effort. Abdomen: Soft, nontender, nondistended. Bowel sounds are present. Skin: Warm and dry throughout without any rashes. Neurological: She is moving all extremities except for limited movement in the left lower extremity but she is able to move it. She has no focal deficits. Psychiatric: She is pleasant. She attempts to answer questions but she is somewhat confused. She is easily redirectable. DATA: Chest x-ray shows low lung volumes with no acute disease. Her EKG today at 12:39 showed a recurrence of rapid atrial fibrillation. Mild ST depressions somewhat diffusely. A PVC versus aberrantly conducted beat was noted. Her earlier EKG on presentation on the showed sinus rhythm, no real significant abnormalities. Her lab data showed a sodium 143 today, potassium 3.8, BUN 19, creatinine 0.6. Cardiac enzymes are negative. She does have a mild elevation in her CK. White count is 13.2, hematocrit 24, platelet count 172,000. TSH is pending. ASSESSMENT: Ms. Patel is a 73-year-old female with a history of vascular dementia. PLAN: She had occurrence of atrial fibrillation today with rapid ventricular response and has since spontaneously converted. I agree with current medications including diltiazem and digoxin. I would not anticoagulate the patient at this time as she presently has a relatively low hematocrit. She may need transfusion. She did have a hematocrit on presentation at 38 most recent was 24.1. TSH is pending. The echocardiogram is currently pending. The patient's CHADS- VASc is at least 5 for age, female sex and history of CVA. We will follow up on the patient in the morning. cc: Obinna Tam MD
[2018-11-26] MEDS: TYLENOL PO SCH ×2 (05:06→12:12)
[2018-11-26 05:16] LABS: BASO# 0.03 X1000 (0.0-0.2); BASO% 0.2 % (0.0-0.8); EOS# 0.01 X1000 (0.0-0.7); EOS% 0.1 % (0.0-10.0); HEMATOCRIT 30.6 % (37.0-47.0); HEMOGLOBIN 9.8 g/dL (12.0-16.0); IMM GRAN# 0.17 X1000 (0.0-0.04); IMM GRAN% 1.2 % (0.0-0.5); LYMPH# 0.98 X1000 (1.2-3.4); LYMPH% 6.7 % (20.5-51.1); MCH 29.3 PG (27-31); MCV 91.3 FL (81-99); MONO# 1.24 X1000 (0.11-0.59); MONO% 8.5 % (1.7-9.3); NEUT# 12.22 X1000 (1.4-6.5); NEUT% 83.3 % (42.2-75.2); PLT 215 X1000 (130-400); RBC 3.35 XMIL (4.2-5.4); RDW 16.5 % (11.5-14.5); WBC 14.65 X1000 (4.8-10.8)
[2018-11-26 05:19] LABS: AGAP 14; BUN 28 mg/dL (8-22); CALCIUM 8.1 mg/dL (8.8-10.2); CHLORIDE 108 mmol/L (98-107); COSMO 300; CREATININE 0.7 mg/dL (0.5-0.9); ESTIMATED GFR > 60; GLUCOSE 129 mg/dL (70-104); MAGNESIUM 2.5 mg/dL (1.5-2.7); POTASSIUM 3.8 mmol/L (3.5-5.1); SODIUM 147 mmol/L (136-145); TCO2 25 mmol/L (25-35)
[2018-11-26 06:22] LABS: BANDS 1 % (0-1); LYMPHS 6 % (21-51); MONO 10 % (1-9); SEGS 83 % (42-75)
[2018-11-26 06:23] LABS: ANISOCYTOSIS 1+
[2018-11-26] MEDS: NS 1,000 ML IV SCH (08:32)
[2018-11-26] MEDS: PERIDEX MT SCH ×2 (09:29→21:24)
[2018-11-26] MEDS: CARDIZEM PO SCH ×3 (09:29→21:25)
[2018-11-26] MEDS: LEVAQUIN 500 MG/D5W 500 MG/100 ML IVPB IV SCH (09:29)
[2018-11-26] MEDS: FERROUS SULFATE PO SCH (09:30)
[2018-11-26 10:00] LABS: ALLEN TEST YES; BE 1.7 mmoll (-3.0-3.0); BLOOD TYPE ARTERIAL; HCO3-(ACT) 26.1 mmoll (20.0-26.0); METHB 1.1 % (0.0-1.5); O2(CT) 12.3 mL/dL (15.0-23.0); PCO2(98.6) 42 mmHg (35-45); PO2(98.6) 52 mmHg (60-100); SAMPLE BLOOD; THB 9.9 g/dL (11.5-17.4); pH(98.6) 7.41 (7.35-7.45)
[2018-11-26 10:02] LABS: MODALITY CANNULA
[2018-11-26 10:05] LABS: O2HB 88.1 % (95.0-99.0)
[2018-11-26] MEDS: LOVENOX SUBQ SCH (10:12)
[2018-11-26 11:40] LABS: URINE SOURCE CATH
[2018-11-26 11:54] LABS: BILIRUBIN URINE NEGATIVE (NEGATIVE); BLOOD URINE TRACE (NEGATIVE); COLOR YELLOW; GLUCOSE URINE TRACE mg/dL (NEGATIVE); KETONE URINE >150 mg/dL (NEGATIVE); LEUKOCYTES URINE NEGATIVE (NEGATIVE); NITRITE URINE NEGATIVE (NEGATIVE); PROTEIN URINE 70 mg/dL (NEGATIVE); SP GRAVITY URINE 1.024; TURBIDITY URINE CLEAR (CLEAR); UROBILINOGEN URINE NORMAL (NORMAL)
[2018-11-26 11:55] LABS: UR EPITHELIAL CELLS <10 /HPF (<10); URINE BACTERIA NEGATIVE /HPF; URINE RBC <10 /HPF (<10); URINE WBC <10 /HPF (<10)
[2018-11-26] MEDS: D5 1/2 NS 1,000 ML IV SCH (12:12)
[2018-11-26] MEDS: OXY IR PO PRN (12:12)
--- NOTE | 2018-11-26 14:27 | Diag Imaging Result Doc PS360 ---
EXAM: ABDOMEN FLAT/UPRIGHT INDICATION: pain TECHNIQUE: 3 views COMPARISON: None. FINDINGS: There is increased stool in the rectum suggesting a rectal fecal impaction. The diameter of the impacted rectum measures up to 7 cm. There are multiple distended loops of small bowel and the stomach is somewhat distended. In part, this may be due to the impaction. However, small bowel obstruction or ileus is also a consideration. There is no evidence of large volume free abdominal gas. IMPRESSION: Suggestion of a rectal fecal impaction and multiple gas-distended loops of small bowel. Please see above discussion. Electronically signed by Sherwin Linder 11/26/2018 2:25 PM
--- NOTE | 2018-11-26 15:10 | PROGRESS NOTE ---
DATE: 11/26/2018 SUBJECTIVE: Patient has no focal complaints. She did have an episode of emesis this morning. She is also somewhat confused. She has significant dementia, but she seems like she is having some hallucinations per her . She is stable and has converted to normal sinus rhythm, which she did shortly after being in the CI unit. Rest of vitals have been stable. OBJECTIVE: Blood pressure 129/62, heart rate of 81, respiratory rate 18, temperature 98.6 degrees.Cardiovascular: Regular rate and rhythm. She had a low-grade temperature 100.8 degrees yesterday. Pulmonary: No wheezing, no rales. GI: Soft, nontender, nondistended. Bowel sounds are positive. LABORATORY DATA: White count is 14, hemoglobin and hematocrit 9 and 30, platelets 215. The pH is 7.41, pCO2 42, PaO2 52. Sodium is 147. TSH is 0.23. PROBLEM LIST: 1. Atrial fibrillation with rapid ventricular response. She has converted back to normal sinus. She is on Cardizem. She seems to be stable on the oral Cardizem. Dr. Tam has seen the patient. She will need chronic anticoagulation, but right now her blood count is too low. That being said, she is on deep vein thrombosis prophylaxis. 2. Chronic obstructive pulmonary disease. She is on oxygen, breathing treatments. We will continue to follow. 3. Vascular dementia with now delirium, behavioral disturbance. She is on really no medications for that, except for Ativan. I am going to start some Seroquel at night. She is literally on nothing and see how she does. We will have to be careful due to QT prolongation. 4. Anemia, status post surgery due to blood loss; that has improved with the transfusion. 5. Questionable pneumonia. She is on Levaquin. We will continue to follow closely. 6. Left hip fracture. Aware of diagnosis. Continue with physical therapy. Plan is to discharge her to rehabilitation when stable, hopefully in the next 24 hours. 7. Nausea. This may be related to constipation. She had a bowel movement, but her abdomen is distended and she has very diminished bowel sounds. So, we will continue to follow. cc: Gilson Myers MD
--- NOTE | 2018-11-26 17:17 | CARDIOLOGY PROGRESS NOTE ---
DATE: 11/26/2018 SUBJECTIVE: Ms. Patel continues to be mildly confused but really has no complaints today. She is very pleasant. OBJECTIVE: The patient had a T-Max of 100.8 this morning at 4:00 o'clock. Heart rates have been controlled since around 2027 yesterday when they were documented in the 70s-80s. Blood pressure 129/62. General: She is in no acute distress. Cardiovascular: She sounds to be in a regular rate and rhythm. She has no murmurs. Her telemetry shows a sinus rhythm. She has no lower extremity edema. Chest: Clear from the anterior and axillary positions. Abdomen: Soft and nontender. No obvious organomegaly. PERTINENT DATA: She had an echo yesterday showing an EF of 65%. There was no significant valvular abnormality on this study. Her laboratory data showed a white count of 14.6 today and hematocrit of 30. Platelet count is 215. Her sodium is 147. BUN and creatinine are 28 and 0.7. Her TSH is slightly low at 0.23. ASSESSMENT: Ms. Patel is a 73-year-old female with a history of recent fall with hip fracture. She had onset of atrial fibrillation. PLAN: I have no acute recommendations other than checking a free T4 on this patient. Her TSH was reduced. She has converted back into a sinus rhythm. I would not recommend anticoagulation in this patient given her dementia as well as her issues with fall recently. We could consider aspirin in the future. However, she has had some requirement for transfusions, so I would hold off for the time being. No further recommendations at this time. cc: Obinna Tam MD
[2018-11-26] MEDS: COLACE PO SCH (21:24)
[2018-11-26] MEDS: SEROQUEL PO SCH (21:25)
[2018-11-27] MEDS: D5 1/2 NS 1,000 ML IV SCH (01:28)
[2018-11-27] MEDS: XOPENEX NEB INH SCH ×4 (03:00→20:56)
[2018-11-27 05:31] LABS: BLOOD TYPE ARTERIAL; HCO3-(ACT) 27.6 mmoll (20.0-26.0); PCO2(98.6) 45 mmHg (35-45); PO2(98.6) 61 mmHg (60-100); SAMPLE BLOOD; pH(98.6) 7.39 (7.35-7.45)
[2018-11-27 05:32] LABS: MODALITY CANNULA
[2018-11-27 05:33] LABS: ALLEN TEST YES
[2018-11-27] MEDS: LOVENOX SUBQ SCH (05:52)
[2018-11-27 05:54] LABS: BASO# 0.03 X1000 (0.0-0.2); BASO% 0.2 % (0.0-0.8); EOS# 0.01 X1000 (0.0-0.7); EOS% 0.1 % (0.0-10.0); HEMATOCRIT 28.5 % (37.0-47.0); HEMOGLOBIN 8.9 g/dL (12.0-16.0); IMM GRAN# 0.24 X1000 (0.0-0.04); IMM GRAN% 1.8 % (0.0-0.5); LYMPH# 1.26 X1000 (1.2-3.4); LYMPH% 9.6 % (20.5-51.1); MCH 28.8 PG (27-31); MCHC 31.2 g/dL (33-37); MCV 92.2 FL (81-99); MONO# 1.53 X1000 (0.11-0.59); MONO% 11.6 % (1.7-9.3); MPV 9.8 FL (7.4-10.4); NEUT# 10.09 X1000 (1.4-6.5); NEUT% 76.7 % (42.2-75.2); PLT 250 X1000 (130-400); RBC 3.09 XMIL (4.2-5.4); RDW 16.2 % (11.5-14.5); WBC 13.16 X1000 (4.8-10.8)
[2018-11-27 06:04] LABS: AGAP 10; BUN 28 mg/dL (8-22); CALCIUM 7.8 mg/dL (8.8-10.2); CHLORIDE 110 mmol/L (98-107); COSMO 299; CREATININE 0.6 mg/dL (0.5-0.9); ESTIMATED GFR > 60; GLUCOSE 151 mg/dL (70-104); POTASSIUM 3.7 mmol/L (3.5-5.1); SODIUM 146 mmol/L (136-145); TCO2 26 mmol/L (25-35)
[2018-11-27] MEDS: FERROUS SULFATE PO SCH (08:22)
[2018-11-27] MEDS: CARDIZEM PO SCH ×3 (08:22→21:26)
[2018-11-27] MEDS: LEVAQUIN 500 MG/D5W 500 MG/100 ML IVPB IV SCH (08:22)
[2018-11-27] MEDS: PERIDEX MT SCH ×2 (08:22→21:26)
[2018-11-27] MEDS: MIRALAX PO SCH (08:22)
--- NOTE | 2018-11-27 10:12 | Diag Imaging Result Doc PS360 ---
EXAM: CHEST-1 VIEW INDICATION: SOB TECHNIQUE: One view COMPARISON: 11/25/2018 FINDINGS: The lungs are grossly clear. There is no discrete pleural fluid collection or pneumothorax. The cardiomediastinal silhouette and central vasculature are grossly unremarkable. IMPRESSION: No evidence of acute pathology by plain radiograph. Electronically signed by Sherwin Linder 11/27/2018 10:10 AM
--- NOTE | 2018-11-27 17:36 | PROGRESS NOTE ---
DATE: 11/27/2018 SUBJECTIVE: Patient has no focal complaints. She looks like she is doing well so in any case I think she is stable enough to go to the floor. OBJECTIVE: Blood pressure 134/78, heart rate of 80, respiratory rate of 18, temperature was 98.3 degrees 94% on 4 L.Cardiovascular: Regular rate and rhythm. Pulmonary: Bilateral breath sounds, clear to auscultation. GI: Soft, nontender, nondistended. Bowel sounds are positive. LABORATORY DATA: Her free T4 was normal, her sodium is 146 but other than that is pretty much okay, her blood gas looked okay pH 7.39, 45, PaO2 61. White blood cell count down to 13, hemoglobin and hematocrit 8 and 28, platelets of 250,000. PROBLEM LIST: 1. Atrial fibrillation. She is converted. She is on just low-dose Cardizem and seems rate controlled. She will need long-term anticoagulation. Her CARIDAD score is greater than 2 but she is not stable enough right now she is just on prophylaxis although I think probably at the time of discharge we could switch her to Xarelto or Eliquis. 2. Chronic obstructive pulmonary disease appears to be stable. She is on a little bit more oxygen 4 L but her baseline O2 requirement according to her is 3.5, she sounds clear and her chest x-ray is also clear. 3. Vascular dementia. She seems to be doing okay. She is on Seroquel and tolerating it. 4. Anemia. She has had a slight drop in her blood count but will continue to follow. 5. Left hip fracture. She is status post open reduction and internal fixation. Continue PT. DISPOSITION: I think it is possible she could go to the floor here soon. I am going to advance her diet and try to transfer her to [address] [place] [address] [facility] and possibly rehab soon. cc: Gilson Myers MD
--- NOTE | 2018-11-27 17:53 | CARDIOLOGY PROGRESS NOTE ---
DATE: 11/27/2018 SUBJECTIVE: Ms. Patel has no complaints today. PHYSICAL EXAMINATION: Vital Signs: She is afebrile. Heart rate is 74, blood pressure 139/81. General: She is in no acute distress. She is pleasant. Cardiovascular: She is in a regular rate and rhythm. Telemetry currently shows sinus. She has no lower extremity edema. Chest: Exam sounds clear bilaterally. She has no increased work of breathing. Abdomen: Soft, nontender. PERTINENT DATA: Her white count is 13, her hematocrit is 28, her platelet count is 250,000. Her sodium is 146, potassium 3.7, BUN 28, creatinine is 0.6. ASSESSMENT: Ms. Patel is a 73-year-old female with new onset atrial fibrillation after hip fracture. PLAN: I do not have any acute recommendations on this patient. I would continue her on the diltiazem as she is currently on. I would not recommend full anticoagulation in this patient for her atrial fibrillation due to her history of dementia as well as falls. Please contact us if we can be of further assistance with this patient. cc: Obinna Tam MD
[2018-11-27] MEDS: SEROQUEL PO SCH (21:26)
[2018-11-27] MEDS: COLACE PO SCH (21:26)
[2018-11-27] MEDS: CALMOSEPTINE OINTMENT TOP PRN (21:32)
[2018-11-27] MEDS: HALDOL IV PRN (21:32)
[2018-11-28] MEDS: HALDOL IV PRN (01:36)
[2018-11-28] MEDS: XOPENEX NEB INH SCH ×4 (03:37→22:50)
[2018-11-28] MEDS: LOVENOX SUBQ SCH (05:52)
[2018-11-28 06:51] LABS: BASO# 0.03 X1000 (0.0-0.2); BASO% 0.3 % (0.0-0.8); EOS# 0.02 X1000 (0.0-0.7); EOS% 0.2 % (0.0-10.0); HEMATOCRIT 28.3 % (37.0-47.0); HEMOGLOBIN 8.9 g/dL (12.0-16.0); IMM GRAN# 0.34 X1000 (0.0-0.04); IMM GRAN% 2.9 % (0.0-0.5); LYMPH# 1.68 X1000 (1.2-3.4); LYMPH% 14.3 % (20.5-51.1); MCHC 31.4 g/dL (33-37); MCV 92.2 FL (81-99); MONO% 11.9 % (1.7-9.3); MPV 9.7 FL (7.4-10.4); NEUT# 8.29 X1000 (1.4-6.5); NEUT% 70.4 % (42.2-75.2); PLT 272 X1000 (130-400); RBC 3.07 XMIL (4.2-5.4); RDW 15.6 % (11.5-14.5); WBC 11.76 X1000 (4.8-10.8)
[2018-11-28 07:04] LABS: AGAP 10; BUN 25 mg/dL (8-22); CHLORIDE 111 mmol/L (98-107); COSMO 301; CREATININE 0.6 mg/dL (0.5-0.9); ESTIMATED GFR > 60; GLUCOSE 107 mg/dL (70-104); MAGNESIUM 2.4 mg/dL (1.5-2.7); POTASSIUM 3.4 mmol/L (3.5-5.1); SODIUM 149 mmol/L (136-145); TCO2 28 mmol/L (25-35)
--- NOTE | 2018-11-28 07:14 | EKG Report ---
Test Performed on : 11/25/2018 3:28:30 PM Test Reason : Afib c RVR Blood Pressure : / mmHG Vent. Rate : 090 BPM Atrial Rate : 090 BPM P-R Int : 146 ms QRS Dur : 080 ms QT Int : 418 ms P-R-T Axes : 070 030 082 degrees QTc Int : 511 ms Normal sinus rhythm. Nonspecific T wave abnormality Abnormal ECG When compared with ECG of 25-NOV-2018 12:39, (Unconfirmed) Sinus rhythm. has replaced Atrial fibrillation. Vent. rate has decreased BY 58 BPM Nonspecific T wave abnormality has replaced inverted T waves in Anterior leads Confirmed by Jessica LAMBERT, Miguel Gallego ([id number]) on 11/28/2018 11:04:27 AM
[2018-11-28] MEDS: PERIDEX MT SCH ×2 (10:14→22:02)
[2018-11-28] MEDS: FERROUS SULFATE PO SCH (10:14)
[2018-11-28] MEDS: CARDIZEM PO SCH ×4 (10:15→22:02)
[2018-11-28] MEDS: MIRALAX PO SCH (10:15)
[2018-11-28] MEDS: LEVAQUIN 500 MG/D5W 500 MG/100 ML IVPB IV SCH (10:18)
[2018-11-28] MEDS ORDERED: KLOR-CON PO ONE (18:56)
--- NOTE | 2018-11-28 19:17 | PROGRESS NOTE ---
DATE: 11/28/2018 SUBJECTIVE: Patient resting comfortable
[2018-11-28] MEDS: CALMOSEPTINE OINTMENT TOP PRN (22:00)
[2018-11-28] MEDS: SEROQUEL PO SCH (22:24)
[2018-11-28] MEDS: COLACE PO SCH (22:24)
[2018-11-29] MEDS: XOPENEX NEB INH SCH ×4 (03:15→23:06)
[2018-11-29] MEDS: CALMOSEPTINE OINTMENT TOP PRN (05:18)
[2018-11-29] MEDS: LOVENOX SUBQ SCH (06:13)
[2018-11-29] MEDS: LEVAQUIN 500 MG/D5W 500 MG/100 ML IVPB IV SCH (08:40)
[2018-11-29] MEDS: CARDIZEM PO SCH ×3 (08:40→21:09)
[2018-11-29] MEDS: MIRALAX PO SCH (08:40)
[2018-11-29] MEDS: FERROUS SULFATE PO SCH (08:41)
[2018-11-29] MEDS: PERIDEX MT SCH ×2 (08:41→21:09)
[2018-11-29] MEDS ORDERED: D5 1/2 NS 1,000 ML IV SCH (11:30)
[2018-11-29] MEDS: SEROQUEL PO SCH (21:09)
[2018-11-29] MEDS: COLACE PO SCH ×2 (21:09→21:12)
[2018-11-29] MEDS: HALDOL IV PRN (22:42)
--- NOTE | 2018-11-30 01:24 | PROGRESS NOTE ---
DATE: 11/29/2018 SUBJECTIVE: She is still fairly confused, but doing well. No major complaints. OBJECTIVE: Vital Signs: Blood pressure 131/54, heart rate of 75, respiratory rate 20, temperature 97.9 degrees, and 96% on a Ventimask. Pulmonary: Bilateral breath sounds. Clear to auscultation. GI: Soft, nontender, nondistended. Bowel sounds. Extremities: No clubbing or cyanosis. LABORATORY: White count 11, H H 8.9 and 28, platelets 272,000. Sodium is 149, potassium 3.4. ASSESSMENT AND PLAN: 1. Left hip fracture, status post open reduction and internal fixation. Continue pain control. We will continue PT. We will follow closely. 2. Chronic obstructive pulmonary disease. We will continue nebulized treatments and follow. Wean oxygen as tolerated. 3. Vascular dementia. Continue regular medications and follow. 4. Anemia. Stabilized. 5. Atrial fibrillation is rate controlled. Will need long-term anticoagulation. 6. Disposition is stable. Discharge hopefully soon in the next 1-2 days. cc: Gilson Myers MD
[2018-11-30] MEDS: XOPENEX NEB INH SCH ×3 (03:34→15:45)
[2018-11-30] MEDS: LOVENOX SUBQ SCH (05:30)
[2018-11-30] MEDS ORDERED: NORCO-7.5 PO ONE (06:40)
[2018-11-30 07:39] LABS: BASO# 0.08 X1000 (0.0-0.2); BASO% 0.6 % (0.0-0.8); EOS# 0.19 X1000 (0.0-0.7); EOS% 1.4 % (0.0-10.0); HEMATOCRIT 30.4 % (37.0-47.0); HEMOGLOBIN 9.3 g/dL (12.0-16.0); IMM GRAN# 0.99 X1000 (0.0-0.04); IMM GRAN% 7.3 % (0.0-0.5); LYMPH# 1.99 X1000 (1.2-3.4); LYMPH% 14.7 % (20.5-51.1); MCH 27.9 PG (27-31); MCHC 30.6 g/dL (33-37); MCV 91.3 FL (81-99); MONO# 1.49 X1000 (0.11-0.59); MPV 9.7 FL (7.4-10.4); NEUT# 8.81 X1000 (1.4-6.5); PLT 301 X1000 (130-400); RBC 3.33 XMIL (4.2-5.4); RDW 15.9 % (11.5-14.5); WBC 13.55 X1000 (4.8-10.8)
[2018-11-30 07:43] LABS: LYMPHS 24 % (21-51); MONO 4 % (1-9); NRBC 2 % (0-0); SEGS 62 % (42-75)
[2018-11-30 07:54] LABS: AGAP 10; BUN 20 mg/dL (8-22); CALCIUM 7.7 mg/dL (8.8-10.2); CHLORIDE 107 mmol/L (98-107); COSMO 296; CREATININE 0.4 mg/dL (0.5-0.9); ESTIMATED GFR > 60; GLUCOSE 110 mg/dL (70-104); MAGNESIUM 2.3 mg/dL (1.5-2.7); POTASSIUM 3.3 mmol/L (3.5-5.1); SODIUM 147 mmol/L (136-145); TCO2 30 mmol/L (25-35)
[2018-11-30] MEDS: PERIDEX MT SCH (08:07)
[2018-11-30] MEDS: FERROUS SULFATE PO SCH (08:07)
[2018-11-30] MEDS: LEVAQUIN 500 MG/D5W 500 MG/100 ML IVPB IV SCH (08:08)
[2018-11-30] MEDS: MIRALAX PO SCH (08:08)
[2018-11-30] MEDS ORDERED: CARDIZEM CD PO SCH (09:00)
[2018-11-30 10:13] LABS: ALLEN TEST YES; BE 9.2 mmoll (-3.0-3.0); BLOOD TYPE ARTERIAL; METHB 1.3 % (0.0-1.5); O2(CT) 13.6 mL/dL (15.0-23.0); O2HB 91.9 % (95.0-99.0); PCO2(98.6) 44 mmHg (35-45); PO2(98.6) 63 mmHg (60-100); SAMPLE BLOOD; SAO2 95.3 % (95.0-100.0); THB 10.5 g/dL (11.5-17.4); pH(98.6) 7.49 (7.35-7.45)
[2018-11-30 10:14] LABS: MODALITY CANNULA
--- NOTE | 2018-11-30 12:44 | DISCHARGE SUMMARY ---
ADMISSION DATE: 11/21/2018 DISCHARGE DATE: 11/30/2018 PRIMARY CARE PHYSICIAN: Dr. Kashif Rosenthal PERTINENT PROCEDURES: 1. Head CT: No visible acute intracranial abnormality. No hemorrhage or mass effect. 2. Hip and pelvis x-ray: Fracture of the left femoral neck with varus deformity. 3. Abdominal ultrasound and hepatic steatosis. 4. Pulmonary arteriogram. No PE. Tiny nodular densities in infiltrates bilaterally, but no consolidation. 5. Left bipolar hemiarthroplasty performed by Dr. Alicia. 6. Echocardiogram showed an EF of 65%. CONSULTATIONS: 1. Dr. Alicia with Orthopedics. 2. Dr. Abbasi with Pulmonology. 3. Dr. Obinna Tam with Cardiology. HOSPITAL COURSE: Briefly, Ms. Patel is a 73-year-old female who carries a past medical history of vascular dementia, who presented on the with a fall and subsequent left hip pain. She was found to have a hip fracture. She was admitted for operative repair that she underwent with Dr. Alicia on the . She went into a rapid heart rate that showed atrial fibrillation with RVR. She was transferred to [facility], and subsequently converted into sinus rhythm. She was continued on diltiazem and digoxin. She has also chronic hypercapnic respiratory failure secondary to her end- stage renal disease. She is a hospice patient at home on 3 L nasal cannula. She did come into the hospital to have her hip repaired. She has been working with physical therapy, and will be sent to rehab to continue physical therapy. I believe after rehab the plan is to go back home with [facility]. VITAL SIGNS: At time of discharge, temperature is 98.2 degrees axillary, heart rate 69, respirations 20, blood pressure 129/62, and O2 is 93% on nasal cannula. DISCHARGE DIET: GI soft liquid Glucerna shakes with each meal. DISCHARGE MEDICATIONS: 1. Seroquel 50 mg p.o. at bedtime. 2. Eliquis 5 mg p.o. b.i.d. 3. Aspirin 81 mg p.o. daily. 4. Cardizem CD 120 mg p.o. daily. 5. Clonazepam 0.5 1 mg tablet p.o. every evening p.r.n. 6. Colace 200 mg p.o. every evening p.r.n. 7. Ferrous sulfate 325 mg p.o. with breakfast. 8. Stool softener laxative 100 mg p.o. b.i.d. p.r.n. DISCHARGE DIAGNOSES: 1. The patient is a DNR level 1 who was previously on [facility], who came into the hospital with a left hip fracture for repair and is requiring rehab. 2. Left hip fracture status post open reduction and internal fixation with Dr. Alicia. She will continue working with physical therapy at [facility]. 3. End-stage COPD for which the patient is on home hospice. We will continue with nebulizer treatments and supplemental O2. 4. Vascular dementia. Continue home medications. 5. Anemia, stabilized after 1 unit of PRBC's. 6. Atrial fibrillation, now rate controlled. The patient was initiated on Cardizem and Eliquis. FOLLOW UP: Ms. Patel is being [facility]. She is a DNR level 1. She will continue rehab for her left hip fracture. Follow up with her PCP, Dr. Kashif Rosenthal, as well as Dr. Alicia, and her permanent waver Dr. Obinna Tam. She is take all medications as prescribed. She can return to the ED or call 911 for any worsening of symptoms. Dictated by EVANGELIST Dye for Ganga Khan MD cc: MD Sherwin Martínez MD Peter Johnson, MD Agree with the above discharge summary. The following is my own face to face assessment. Patient with left hip fracture s/p surgical repair. respiratory status poor but at baseline. on exam mildly decreased air entry but no wheezing currently. surgical incision c/d/i. MTDD
[2018-11-30 19:52] VITALS: BP 134/67
[2018-11-30] MEDS ORDERED: SEROQUEL PO SCH (21:00)
== END 2018-11-30 20:37 | DRG 470 ==
LOC: SUPCPDRO → ED 18:45 → 4N 23:29 → SUATTDRO 23:29 → 3S 11-25 14:30 → 4N 11-27 17:38
PROVIDERS: ATTEND Internal Medicine
CPT/HCPCS: 36430; 51702; 70450; 71010; 71045; 71275; 73500; 73501; 73502; 74019; 74020; 76705; 80048; 80053; 81001; 82550; 82553; 82805; 83735; 84134; 84439; 84443; 84484; 85014; 85018; 85025; 85610; 86850; 86900; 86901; 86920; 88305; 88311; 93005; 93010; 93306; 94640; 94761; 94762; 96374; 96375; 96376; 97162; 97530; 99285; A9270; C8929; J0690; J1100; J1160; J1630; J1650; J1956; J2060; J2270; J2370; J2405; J7030; P9016; Q9957; Q9967